=== PATIENT | male | born 2000 | race Caucasian/White ===

== ENCOUNTER 2024-03-01 08:37 | Emergency (ER) | payer BC, MEDICAID ==
[~2024-03-01] VITALS: Ht 162.6 cm; Wt 75.7 kg
[2024-03-01 08:43] VITALS: O2SAT 99
[2024-03-01] MEDS: CYCLOBENZAPRINE 10MG TABLET PO ONE (10:15)
[2024-03-01] MEDS: KETOROLAC 15MG/ML VIAL IM ONE (10:15)
[2024-03-01] MEDS ORDERED: NAPR-681 MT (11:56)
[2024-03-01] MEDS ORDERED: CYCL10TA21 MT (11:56)
[2024-03-01 12:28] VITALS: BP 142/84; PULSE 88; RESP 16; TEMP 36.89184; O2SAT 99
== END 2024-03-01 12:28 | disposition home or self-care (01) ==
LOC: ER 08:37
DX: M54.2 Cervicalgia (principal); V89.2XXA Person injured in unspecified motor-vehicle accident, traffic, initial encounter; Y93.89 Activity, other specified; Y92.89 Other specified places as the place of occurrence of the external cause; Y99.8 Other external cause status
CPT/HCPCS: 99285; 72125; 71045; 96372; J1885

== ENCOUNTER 2024-04-29 08:12 | Emergency (ER) | payer BC ==
[~2024-04-29] VITALS: Ht 162.6 cm; Wt 73.0 kg
[~2024-04-29 08:12] MED LIST: CYCL10TA21 MT; NAPR-681 MT
[2024-04-29 08:24] VITALS: BP 143/77; O2SAT 96
[2024-04-29 09:09] LABS: BASOPHILS % 0.3 % (0.0-2.0); EOSINOPHILS % 0.1 % (0.0-5.0); HEMATOCRIT. 44.4 % (42.0-52.0); HEMOGLOBIN. 14.8 g/dL (14.0-18.0); LYMPHOCYTES % 7.6 % (20.0-50.0); MEAN CORPUSCULAR HEMOGLOBIN 28.7 pg (28.0-32.0); MEAN CORPUSCULAR HGB CONC 33.4 g/dL (31.0-37.0); MEAN CORPUSCULAR VOLUME 86.1 fL (80.0-94.0); MEAN PLATELET VOLUME 7.9 fl (7.4-10.4); MONOCYTES % 4.8 % (2.0-8.0); NEUTROPHILS % 87.2 % (40.0-76.0); PLATELET 173 x1000/uL (130-400); RED BLOOD CELL COUNT 5.15 mill/uL (4.7-6.1); RED CELL DISTRIBUTION WIDTH 13.1 % (11.6-14.6); WHITE BLOOD COUNT 8.5 x1000/uL (4.5-11.0)
[2024-04-29 09:15] LABS: CHLORIDE 104 mEq/L (98-107); POTASSIUM 3.6 mEq/L (3.5-5.1); SODIUM 138 mEq/L (136-145)
[2024-04-29 09:16] LABS: CALCIUM 9.3 mg/dL (8.7-10.4); CARBON DIOXIDE 23 mEq/L (21-32)
[2024-04-29 09:21] LABS: CREATININE 1.2 mg/dL (0.6-1.3); GLUCOSE 119 mg/dL (70-105); UREA NITROGEN BLOOD 11 mg/dL (9-23)
[2024-04-29 09:22] LABS: TROPONIN I HIGH SENSITIVITY 27 ng/L (3.0-53)
[2024-04-29] MEDS: SODIUM CHLORIDE 0.9% 1,000 ML IV SCH (10:50)
[2024-04-29 11:41] VITALS: PULSE 108; RESP 18; TEMP 37.00296; O2SAT 97
[2024-04-29 12:58] LABS: THYROID STIMULATING HORMONE 0.77 uIU/mL (0.55-4.78)
== END 2024-04-29 13:45 | disposition home or self-care (01) ==
LOC: ER 08:12
DX: R00.2 Palpitations (principal); R00.0 Tachycardia, unspecified; R07.9 Chest pain, unspecified; Z79.1 Long term (current) use of non-steroidal anti-inflammatories (NSAID); Z20.822 Contact with and (suspected) exposure to COVID-19
CPT/HCPCS: 80048; 84443; 85025; 84484; 87804 ×2; 36415; 71045; 93005; 96360; 99285; 87426; Z7610